=== PATIENT | female | born 1950 | race Caucasian/White ===

== ENCOUNTER → 2016-03-13 | Outpatient (CLI) | payer MEDICARE ==
[2016-03-13 08:37] LABS: Basophils # (A) 0.1 k/uL (0-0.2); Basophils % (A) 2 %; CH 29.2; CHCM 33.5; Eosinophils # (A) 0.1 k/uL (0-0.7); Eosinophils % (A) 2 %; HCT 40.9 % (34.0-46.0); HGB 13.5 gm/dL (11.4-16.0); Luc # (Auto) 0.07; Luc % (Auto) 1; Lymphocytes # (A) 2.2 k/uL (1.0-4.8); Lymphocytes % (A) 45 %; MCH 28.9 pg (25.0-35.0); MCHC 32.9 g/dL (31.0-37.0); MCV 87.7 fL (80.0-100.0); Mean Platelet Volume 8.1; Monocytes # (A) 0.3 k/uL (0-1.0); Monocytes % (A) 6 %; Neutrophils # (A) 2.2 k/uL (1.3-7.7); Neutrophils % (A) 44 %; RBC 4.67 m/uL (3.80-5.40); RDW 13.6 % (11.5-15.5); WBC 4.9 k/uL (3.8-10.6); WBC (Perox) 4.94
[2016-03-13 08:56] LABS: ALT 35 U/L (9-52); AST 21 U/L (14-36); Alkaline Phosphatase 73 U/L (38-126); Anion Gap 12 mmol/L; Blood Urea Nitrogen 15 mg/dL (7-17); Calcium 9.6 mg/dL (8.4-10.2); Carbon Dioxide 28 mmol/L (22-30); Chloride 106 mmol/L (98-107); Cholesterol 242 mg/dL (<200); Glucose 97 mg/dL (74-99); HDL Cholesterol 61 mg/dL (40-60); Non-African American GFR(MDRD) >60 (>60 ml/min/1.73 sqM); Potassium 4.9 mmol/L (3.5-5.1); Sodium 146 mmol/L (137-145); Total Bilirubin 0.5 mg/dL (0.2-1.3); Total Protein 6.9 g/dL (6.3-8.2); Triglycerides 168 mg/dL (<150)
[2016-03-13 10:31] LABS: Hemoglobin A1C 5.4 % (4.2-6.1)
--- NOTE | 2016-03-13 15:26 | US ---
EXAMINATION TYPE: US kidneys/renal and bladder DATE OF EXAM: 03/13/2016 2:46 PM COMPARISON: Prior ultrasound kidneys January CLINICAL HISTORY: Hypertension, microscopic hematuria, renal cysts. EXAM MEASUREMENTS: Right Kidney: 9.5 x 4.7 x 4.6cm Left Kidney: 9.7 x 5.2 x 4.5cm Right Kidney: wnl Left Kidney: 3.0 x 3.4 x 2.9cm cystic focus at the mid pole with a small questionable septation shows a similar appearance, 1.4cm cystic area superior pole also shows a similar appearance Bladder: wnl Bilateral Jets seen: yes There is no evidence for hydronephrosis at this point in time. No nephrolithiasis is seen. Corticome dullary differentiation may be somewhat diminished within the left kidney, the kidney is somewhat poo rly differentiated from the background. The urinary bladder is anechoic. Bilateral ureteral jets are seen. IMPRESSION: There may be underlying medical renal disease. Stable appearance of left renal cyst. No hydronephrosi s.
--- NOTE | 2016-03-13 16:03 | BD ---
EXAMINATION TYPE: MG DEXA axial skeleton. DATE OF EXAM: 03/13/2016 3:20 PM COMPARISON: NONE CLINICAL HISTORY: Osteopenia, M85.80 Height: 5 ft 2 in Weight: 183 FRAX RISK QUESTIONS: Alcohol (3 or more units per day): YES Family History (Parent hip fracture): NO Glucocorticoids (More than 3mos): NO (Ex: prednisone, prednisolone, methylprednisolone, dexamethasone, and hydrocortisone). History of Fracture in Adulthood: YES Secondary Osteoporosis: 1. Type 1 Diabetes: NO 2. Hyperthyroidism: NO 3. Menopause before 45: YES 4. Malnutrition: NO 5. Chronic liver disease: NO Rheumatoid Arthritis: NO Current Tobacco Use: NO RISK FACTORS HISTORY OF: Family History of Osteoporosis: NO Smoke tobacco: NO Drink Alcohol: YES Active: NO Postmenopausal woman: PARTIAL HYST AGE 30 MEDICATIONS: Additional Medications: TOPROL, Additional History: EXAM MEASUREMENTS: Bone mineral densitometry was performed using the [employer] System. Bone mineral density as measured about the Lumbar spine is: ----- L1-L4(G/cm2): 1.063 T Score Values are as follows: ----- L2: -1.6 ----- L3: -0.7 ----- L4: -0.9 ----- L1-L4: -1.0 Bone mineral density has: Increased 1.6 % since study of: 2007 Bone mineral density about the R hip (g/cm2): 0.908 Bone mineral density about the L hip (g/cm2): 0.862 T Score values are as follows: -----R Neck: -0.9 -----L Neck: -1.3 -----R Intertrochanter: 0.1 -----L Intertrochanter: -0.5 Bone mineral density has: Decreased -4.3% since study of: 2007 IMPRESSION: Osteopenia (T Score between -2.5 and -1 as noted by T score values There is slightly increased risk of fracture and the patient may be considered for treatment. Re-Screen 1-2 years. NOTE: T-SCORE=SD OF THE YOUNG ADULT MEAN.
--- NOTE | 2016-03-15 08:08 | MM ---
Reason for exam: screening (asymptomatic). Last mammogram was performed 2 years and 3 months ago. History: Patient is postmenopausal. Family history of breast cancer in paternal cousin. Took estrogen for 4 years 9 months. Physical Findings: A clinical breast exam by your physician is recommended on an annual basis and results should be correlated with mammographic findings. MG 3D Screening Mammo W/Cad Bilateral CC and MLO view(s) were taken. Prior study comparison: November 30, 2013, right breast MG work up mamm w CAD RT. November 24, 2013, bilateral MG screening mammo w CAD. May 31, 2011, [facility] DIGITAL RIGHT MAMMOGRAM w/CAD. May 28, 2011, bilateral digital screening mammo w/CAD. July 07, 2009, bilateral digital screening mammogram. There are scattered fibroglandular densities. No significant changes when compared with prior studies. ASSESSMENT: Negative, BI-RAD 1 RECOMMENDATION: Routine screening mammogram of both breasts in 1 year.
== END | disposition home or self-care (01) ==
LOC: RADUSWWP 07:58
PROVIDERS: ATTEND Family Medicine
DX: Z12.31 Encounter for screening mammogram for malignant neoplasm of breast (principal); N28.1 Cyst of kidney, acquired; M85.80 Other specified disorders of bone density and structure, unspecified site; I10 Essential (primary) hypertension; R31.29 Other microscopic hematuria; Z68.32 Body mass index [BMI] 32.0-32.9, adult; Z00.00 Encounter for general adult medical examination without abnormal findings
CPT/HCPCS: 80061; 80053; 83036; 84443; 85025; 82306; 77080; 77063; 76770; G0202

== ENCOUNTER → 2017-01-09 | Outpatient (CLI) | payer MEDICARE ==
--- NOTE | 2017-01-09 15:33 | US ---
EXAMINATION TYPE: US kidneys/renal and bladder DATE OF EXAM: 01/09/2017 COMPARISON: Renal ultrasound March 13, 2016 and older study July 22, 2014 CLINICAL HISTORY: Q61.02 multiple Renal cyst. EXAM MEASUREMENTS: Right Kidney: 9.3 x 4.0 x 5.2 cm Left Kidney: 10.2 x 5.0 x 4.1 cm Post Void Residual Volume: 4.8 mL Right Kidney: wnl Left Kidney: cysts mid pole septated some debris within, 3.4 x 3.6 x 3.3 cm superior pole small cyst 1.1 x 0.6 x 1.4 cm , both are stable Bladder: wnl Bilateral Jets seen: Yes Normal Post Void Residual: Yes There is no evidence for hydronephrosis at this point in time. No nephrolithiasis is seen. No suspi cious new solid or cystic masses are identified. The urinary bladder is anechoic. Bilateral uretera l jets are seen. IMPRESSION: There is stable 3.6 cm slightly lobulated and thin septated not completely anechoic cyst in left kidn ey unchanged from July 22, 2014 study is favored benign. No new suspicious lesions are evident.
== END | disposition home or self-care (01) ==
LOC: RADUSWWP 14:51
PROVIDERS: ATTEND Family Medicine
DX: N28.1 Cyst of kidney, acquired (principal)
CPT/HCPCS: 76770

== ENCOUNTER → 2017-05-21 | Outpatient (CLI) | payer MEDICARE ==
--- NOTE | 2017-05-23 10:51 | MM ---
Reason for exam: screening (asymptomatic). Last mammogram was performed 1 year and 2 months ago. History: Patient is postmenopausal. Family history of breast cancer in paternal cousin. Took estrogen for 4 years 9 months. Physical Findings: A clinical breast exam by your physician is recommended on an annual basis and results should be correlated with mammographic findings. MG 3D Screening Mammo W/Cad Bilateral CC and MLO view(s) were taken. Prior study comparison: March 13, 2016, bilateral MG 3d screening mammo w/cad. November 30, 2013, right breast MG work up mamm w CAD RT. The breast tissue is heterogeneously dense. This may lower the sensitivity of mammography. No suspicious abnormality. No significant changes when compared with prior studies. ASSESSMENT: Negative, BI-RAD 1 RECOMMENDATION: Routine screening mammogram of both breasts in 1 year.
== END | disposition home or self-care (01) ==
LOC: RADMAMWWP 16:49
PROVIDERS: ATTEND Family Medicine
DX: Z12.31 Encounter for screening mammogram for malignant neoplasm of breast (principal)
CPT/HCPCS: 77063; 77067

== ENCOUNTER → 2018-04-10 | Outpatient (CLI) | payer MEDICARE ==
[2018-04-10 09:32] LABS: Basophils % (A) 0 %; Eosinophils # (A) 0.1 k/uL (0-0.7); Eosinophils % (A) 3 %; HCT 40.9 % (34.0-46.0); HGB 13.2 gm/dL (11.4-16.0); Lymphocytes # (A) 2.3 k/uL (1.0-4.8); Lymphocytes % (A) 42 %; MCH 27.7 pg (25.0-35.0); MCHC 32.2 g/dL (31.0-37.0); Mean Platelet Volume 7.6; Monocytes # (A) 0.3 k/uL (0-1.0); Monocytes % (A) 5 %; Neutrophils # (A) 2.7 k/uL (1.3-7.7); Neutrophils % (A) 48 %; Platelet Count 214 k/uL (150-450); RBC 4.76 m/uL (3.80-5.40); RDW 14.1 % (11.5-15.5); WBC 5.5 k/uL (3.8-10.6)
[2018-04-10 16:42] LABS: Albumin/Globulin Ratio 2.11 (1.60-3.17); Anion Gap 7.6 mmol/L (4.00-12.00); Carbon Dioxide 27.4 mmol/L (21.6-31.8); Globulin 1.9 g/dL (1.6-3.3); LDL Cholesterol,Calculated 138.6 mg/dL (0.0-131.0); Potassium 4.4 mmol/L (3.5-5.5); Total Bilirubin 0.3 mg/dL (0.2-1.2); Total Protein 5.9 g/dL (6.2-8.2); VLDL Calculation 35.4 mg/dL (5.00-40.00)
[2018-04-10 18:14] LABS: Hemoglobin A1C 5.8 % (4.0-6.0)
== END ==
LOC: LABWHC1 08:36
PROVIDERS: ATTEND Family Medicine
DX: Z00.00 Encounter for general adult medical examination without abnormal findings (principal); I10 Essential (primary) hypertension; J30.1 Allergic rhinitis due to pollen; R73.01 Impaired fasting glucose
CPT/HCPCS: 36415; 80053; 80061; 83036; 84443; 85025

== ENCOUNTER → 2018-06-02 | Outpatient (CLI) | payer MEDICARE ==
--- NOTE | 2018-06-02 13:21 | MM ---
Reason for exam: screening (asymptomatic). Last mammogram was performed 1 year ago. History: Patient is postmenopausal. Family history of breast cancer in paternal cousin. Took estrogen for 4 years 9 months. Physical Findings: A clinical breast exam by your physician is recommended on an annual basis and results should be correlated with mammographic findings. MG 3D Screening Mammo W/Cad Bilateral CC and MLO view(s) were taken. Prior study comparison: May 21, 2017, bilateral MG 3d screening mammo w/cad. March 13, 2016, bilateral MG 3d screening mammo w/cad. There are scattered fibroglandular densities. Finding #1: There is a 3 mm equal density (isodense), circumscribed oval mass in the outer quadrant of the right breast. Finding #2: There are typically benign calcifications in the left breast. ASSESSMENT: Incomplete: need additional imaging evaluation, BI-RAD 0 RECOMMENDATION: Special view mammogram of the right breast. If lesion persists on supplemental views, image directed ultrasound is recommended. [facility] will attempt to contact patient to return for supplemental views and ultrasound if indicated.
== END | disposition home or self-care (01) ==
LOC: RADMAMWWP 08:53
PROVIDERS: ATTEND Family Medicine
DX: Z12.31 Encounter for screening mammogram for malignant neoplasm of breast (principal)
CPT/HCPCS: 77063; 77067

== ENCOUNTER → 2018-06-04 | Outpatient (CLI) | payer MEDICARE ==
--- NOTE | 2018-06-04 14:42 | MM ---
Reason for exam: additional evaluation requested from abnormal screening. Last mammogram was performed less than 1 month ago. History: Patient is postmenopausal. Family history of breast cancer in paternal cousin. Took estrogen for 4 years 9 months. Physical Findings: Nurse did not find any significant physical abnormalities on exam. MG 3D Work Up W/Cad RT Spot compression CC, spot compression MLO, and LM view(s) were taken of the right breast. Prior study comparison: June 02, 2018, bilateral MG 3d screening mammo w/cad. May 21, 2017, bilateral MG 3d screening mammo w/cad. Finding: There is a persistent 4 mm circumscribed round mass in the upper outer quadrant, posterior middle position of the right breast. These results were verbally communicated with the patient and result sheet given to the patient on 06/04/18. ASSESSMENT: Incomplete: need additional imaging evaluation, BI-RAD 0 RECOMMENDATION: Ultrasound of the right breast.
--- NOTE | 2018-06-04 14:44 | USB ---
Reason for exam: additional evaluation requested from abnormal screening. History: Patient is postmenopausal. Family history of breast cancer in paternal cousin. Took estrogen for 4 years 9 months. US Breast Workup Limited RT Right limited breast ultrasound including focal area of concern, retroareolar and axilla demonstrates a 2 x 2 x 3mm oval, cystic lesion at 10 o'clock. These results were verbally communicated with the patient and result sheet given to the patient on 06/04/18. ASSESSMENT: Benign, BI-RAD 2 RECOMMENDATION: Return to routine screening mammogram schedule for both breasts.
== END | disposition home or self-care (01) ==
LOC: RADMAMWWP 13:29
PROVIDERS: ATTEND Family Medicine
DX: R92.8 Other abnormal and inconclusive findings on diagnostic imaging of breast (principal)
CPT/HCPCS: 77065; 76642; G0279; 77061

== ENCOUNTER → 2019-12-07 | Outpatient (CLI) | payer MEDICARE ==
--- NOTE | 2019-12-08 11:17 | MM ---
Reason for exam: screening (asymptomatic). Last mammogram was performed 1 year and 6 months ago. History: Patient is postmenopausal. Family history of breast cancer in paternal cousin. Took estrogen for 4 years 9 months. Physical Findings: A clinical breast exam by your physician is recommended on an annual basis and results should be correlated with mammographic findings. MG 3D Screening Mammo W/Cad Bilateral CC and MLO view(s) were taken. Prior study comparison: June 04, 2018, right breast MG 3d work up w/cad RT. June 02, 2018, bilateral MG 3d screening mammo w/cad. The breast tissue is heterogeneously dense. This may lower the sensitivity of mammography. There is no discrete abnormality. No significant changes when compared with prior studies. ASSESSMENT: Benign, BI-RAD 2 RECOMMENDATION: Routine screening mammogram of both breasts in 1 year.
== END | disposition home or self-care (01) ==
LOC: RADMAMWWP 07:54
PROVIDERS: ATTEND Family Medicine
DX: Z12.31 Encounter for screening mammogram for malignant neoplasm of breast (principal)
CPT/HCPCS: 77063; 77067

== ENCOUNTER → 2020-12-14 | Outpatient (CLI) | payer MEDICARE ==
--- NOTE | 2020-12-15 12:10 | MM ---
Reason for exam: screening (asymptomatic). Last mammogram was performed 1 year ago. History: Patient is postmenopausal. Family history of breast cancer in paternal cousin. Took estrogen for 4 years 9 months. Physical Findings: A clinical breast exam by your physician is recommended on an annual basis and results should be correlated with mammographic findings. MG 3D Screening Mammo W/Cad Bilateral CC and MLO view(s) were taken. Prior study comparison: December 07, 2019, bilateral MG 3d screening mammo w/cad. Focal asymmetry right upper outer quadrant, stable. No significant changes when compared with prior studies. ASSESSMENT: Benign, BI-RAD 2 RECOMMENDATION: Routine screening mammogram of both breasts in 1 year.
== END | disposition home or self-care (01) ==
LOC: RADMAMWWP 08:20
PROVIDERS: ATTEND Family Medicine
DX: Z12.31 Encounter for screening mammogram for malignant neoplasm of breast (principal); Z80.3 Family history of malignant neoplasm of breast; Z78.0 Asymptomatic menopausal state
CPT/HCPCS: 77063; 77067

== ENCOUNTER → 2020-12-14 | Outpatient (CLI) | payer MEDICARE ==
[2020-12-14 17:08] LABS: Basophils # (A) 0.03 X 10*3/uL (0.00-0.10); Basophils % (A) 0.5 %; Eosinophils % (A) 1.7 %; HCT 43.2 % (37.2-46.3); HGB 13.7 g/dL (12.0-15.0); Lymphocytes # (A) 2.35 X 10*3/uL (0.90-5.00); Lymphocytes % (A) 39.1 %; MCHC 31.7 g/dL (32.0-37.0); MCV 88.2 fL (80.0-97.0); Monocytes # (A) 0.49 X 10*3/uL (0.20-1.00); Monocytes % (A) 8.2 %; Neutrophils # (A) 3.02 X 10*3/uL (1.80-7.70); Neutrophils % (A) 50.2 %; Platelet Count 241 X 10*3/uL (140-440); RDW 14.1 % (11.5-14.5); WBC 6.01 X 10*3/uL (4.50-10.00)
[2020-12-14 18:14] LABS: African American GFR (CKD) 77.4 (60.0-200.0); Albumin 4.3 g/dL (3.8-4.9); Albumin/Globulin Ratio 1.93 (1.60-3.17); Anion Gap 12.7 mmol/L (4.00-12.00); BUN/Creat Ratio 21.42 Ratio (12.00-20.00); Blood Urea Nitrogen 18.7 mg/dL (9.0-27.0); Calcium 9.3 mg/dL (8.7-10.3); Carbon Dioxide 24.1 mmol/L (21.6-31.8); Chol/HDL Ratio 4.37 Ratio; Globulin 2.2 g/dL (1.6-3.3); HDL Cholesterol 58.4 mg/dL (40.00-60.00); LDL Cholesterol,Calculated 164.4 mg/dL (0.0-131.0); Non-African American GFR(CKD) 66.7 (60.0-200.0); Potassium 4.5 mmol/L (3.5-5.5); Total Bilirubin 0.3 mg/dL (0.30-1.20); Total Protein 6.5 g/dL (6.2-8.2); VLDL Calculation 32.2 mg/dL (5.00-40.00)
== END | disposition home or self-care (01) ==
LOC: LABWHC1 08:51
PROVIDERS: ATTEND Family Medicine
DX: Z00.00 Encounter for general adult medical examination without abnormal findings (principal)
CPT/HCPCS: 36415; 80053; 80061; 83036; 84443; 85025

== ENCOUNTER → 2022-07-24 | Outpatient (CLI) | payer MEDICARE ==
--- NOTE | 2022-07-25 08:03 | MR ---
EXAMINATION TYPE: MR shoulder LT wo con DATE OF EXAM: 07/24/2022 COMPARISON: Left shoulder x-ray Jul 08 2022 HISTORY: Left shoulder pain and limited range of motion due to fall injury 2.5 weeks ago. TECHNIQUE: Multiplanar, multisequence imaging of the left shoulder is performed without contrast. FINDINGS: Rotator Cuff: Increased signal in the supraspinatus and infraspinatus tendons with significant focal retracted tear involving significant majority of the supraspinatus tendon. Increased signal in the holliday bscapularis tendon with surrounding fluid. Rotator cuff muscular bulk is preserved. Acromioclavicular Joint: Mild/moderate narrowing and capsular hypertrophy. [id number] spurring. Underlying mass effect noted sagittal image 14 at the level of the myotendinous junction. Glenohumeral Joint: Moderate size joint effusion. Mild spurring. Labrum: The labrum appears grossly intact given limitation of non-arthrogram study. Biceps Tendon: The long head of biceps is in normal location within bicipital groove. Increased signa l in the intracapsular portion is present. Increased vertical signal intra-articular portion also see n. Bone marrow signal: No focal abnormal marrow signal is appreciated. Other: No additional significant abnormality is appreciated. IMPRESSION: 1. Tendinosis of the rotator cuff tendons. There is significant focal retracted tear of the majority of the supraspinatus tendon. 2. Significant partial tearing along the biceps tendon. 3. AC joint arthropathy with suggestion of underlying impingement. 4. Moderate-sized glenohumeral joint effusion.
== END | disposition home or self-care (01) ==
LOC: RADMRIMAIN 20:45
PROVIDERS: ATTEND Registered Nurse
DX: M19.012 Primary osteoarthritis, left shoulder (principal); M75.112 Incomplete rotator cuff tear or rupture of left shoulder, not specified as traumatic; M25.812 Other specified joint disorders, left shoulder; M67.814 Other specified disorders of tendon, left shoulder

== ENCOUNTER → 2022-08-30 | Outpatient (CLI) | payer MEDICARE | END | disposition home or self-care (01) | LOC: LABWHC1 09:15 | PROVIDERS: ATTEND Family Medicine | DX: I10 Essential (primary) hypertension (principal); Q61.02 Congenital multiple renal cysts | CPT/HCPCS: 36415; 93005 ==

== ENCOUNTER → 2023-04-09 | Outpatient (CLI) | payer MEDICARE ==
--- NOTE | 2023-04-09 14:48 | BD ---
EXAMINATION TYPE: Axial Bone Density DATE OF EXAM: 04/09/2023 CLINICAL HISTORY: 73 years old Female. ICD-10 CODE: Z78.0 OSTEOPOROSIS SCREEN Height: 61.2 in Weight: 185 lbs FRAX RISK QUESTIONS: History of Fracture in Adulthood: lt ankle fx age 21 Secondary Osteoporosis: 3. Menopause before 45: partial hysterectomy age 30 EXAM MEASUREMENTS: Bone mineral densitometry was performed using the [employer] System. Bone mineral density as measured about the Lumbar spine is: ----- L1-L4(G/cm2): 1.004 T Score Values are as follows: ----- L1: -1.5 ----- L2: -1.4 ----- L3: -1.6 ----- L4: -1.5 ----- L1-L4: -1.5 Z Score Values are as follows: ----- L1: -0.4 ----- L2: -0.3 ----- L3: -0.5 ----- L4: -0.4 ----- L1-L4: -0.4 Bone mineral density has: Decreased -5.6% since study of: 03/13/2016 Bone mineral density about the R hip (g/cm2): 1.014 Bone mineral density about the L hip (g/cm2): 0.956 T Score values are as follows: -----R Neck: -0.8 -----L Neck: -1.1 -----R Total: 0.1 -----L Total: -0.4 Z Score values are as follows: -----R Neck: 0.7 -----L Neck: 0.3 -----R Total: 1.3 -----L Total: 0.8 Bone mineral density has: Decreased -1.3% since study of: 03/13/2016 FRAX%s: The graph provided illustrates a 14.3% chance for a major osteoporotic fx and a 1.9% chance f or the hips probability for fx in 10 years time. IMPRESSION: Osteopenia (T Score between -2.5 and -1). There is slightly increased risk of fracture and the patient may be considered for treatment. Re-Screen 2-5 years. NOTE: T-SCORE=SD OF THE YOUNG ADULT MEAN.
--- NOTE | 2023-04-10 08:31 | MM ---
Reason for Exam: Screening (asymptomatic). Last mammogram was performed 2 year(s) and 4 month(s) ago. Patient History: Menarche at age 11. First Full-Term at age 17. Hysterectomy at age 30. Postmenopausal. Estrogen for 4 years, 9 months. Paternal cousin had breast cancer. Risk Values: Jeannie 5 year model risk: 1.3%. NCI Lifetime model risk: 3.0%. Prior Study Comparison: 06/04/2018 Right Diagnostic Mammogram, [facility]. 12/07/2019 Bilateral Screening Mammogram, [facility]. 12/14/2020 Bilateral Screening Mammogram, [facility]. Tissue Density: The breast tissue is heterogeneously dense. This may lower the sensitivity of mammography. Findings: Analyzed By CAD. There is no suspicious group of microcalcifications or new suspicious mass in either breast. Benign-appearing calcifications. Stable chronic nodularity. Overall Assessment: Benign, BI-RAD 2 Management: Screening Mammogram of both breasts in 1 year. . Patient should continue monthly self-breast exams. A clinical breast exam by your physician is recommended on an annual basis. This exam should not preclude additional follow-up of suspicious palpable abnormalities. Note on Jeannie scores and lifetime risk: 1. A Jeannie score greater than 3% is considered moderate risk. If this is the case, consider specialist referral to assess eligibility for a risk reducing agent. 2. If overall lifetime risk for the development of breast cancer is 20% or higher, the patient may qualify for future screening with alternating mammogram and breast MRI. Electronically signed and approved by: Francisco Morris M.D. Radiologis
== END | disposition home or self-care (01) ==
LOC: RADMAMWWP 12:22
PROVIDERS: ATTEND Family Medicine
DX: Z12.31 Encounter for screening mammogram for malignant neoplasm of breast (principal); Z78.0 Asymptomatic menopausal state
CPT/HCPCS: 77063; 77067; 77080